=== PATIENT | female | born 1945 | race Caucasian/White ===

== ENCOUNTER 2016-11-05 09:00 | Emergency (ER) | payer MEDICARE, BC ==
--- NOTE | ~2016-11-05 | CT2 ---
[facility] A Service of [facility] / [facility] RADIOLOGY TEXT RESULTS PATIENT: MEHRDAD FISHER LOCATION: [facility] : 45 UNIT #: [id number] AGE: [address]: Wenceslao Miller MD SEX: F ORDER DR: [id number] [facility] [address] [facility]. [place], [place] [address] [id number] E MR#: [id number] Acc #: [id number] NAME: MEHRDAD FISHER. : 1945 SEX: F STUDY DATE/TIME: 11/05/2016 11:36 UNIT: [facility] ROOM: STUDY DESCRIPTION: CT Abd and Pelv W Cont Attending Physician: Wenceslao Miller M.D. Ordering Physician: Wenceslao Miller M.D. Primary Care Physician: Nick Villalobos M.D. MEDICAL IMAGING REPORT This report is preliminary unless electronic signature is present EXAM CT scan of the abdomen and pelvis with contrast HISTORY Right flank and right lower quadrant pain for 2 days radiating down leg TECHNIQUE The patient was given 100 mL of Isovue 370. Axial 5 mm images were obtained through the abdomen and pelvis. This CT exam was performed with one or more of the following radiation dose reduction techniques: automatic exposure control, adjustment of mA and/or kV according to patient size, and iterative reconstruction. COMPARISON 10/13/2013 FINDINGS Lung bases are clear. The liver, spleen, pancreas, adrenal glands and kidneys are normal. gallbladder is absent. The aorta is normal in size and there is no adenopathy. The appendix is normal. There are sigmoid diverticula with mild sigmoid colon wall thickening, unchanged from 2014. There is no inflammation. The uterus has been removed. There are no adnexal masses. The bones show mild degenerative changes. IMPRESSION 1. The appendix is normal and there is no evidence of a urinary stone. No cause for the patient's right-sided symptoms are identified. 2. Prior hysterectomy and cholecystectomy. 3. Otherwise, negative. [facility] A Service of [facility] / [facility] RADIOLOGY TEXT RESULTS PATIENT: MEHRDAD FISHER LOCATION: [facility] #: [id number] : 45 UNIT #: [id number] AGE: [address]: Wenceslao Miller MD SEX: F ORDER DR: Dictated by... Marlo Lyman M.D. THIS IS AN ELECTRONICALLY VERIFIED REPORT Marlo Lyman M.D. at 11/08/2016 2:23 AM FEL/to TD: 11/05/2016 16:10 JOB #: [id number] MEDICAL IMAGING REPORT Page 1 of 1 COPY
[~2016-11-05 09:00] MED LIST: ASPIRIN; CALCIUM + D 6001 TA1 PO; CELEXA; NORVASC PO; OMEPRAZOLE40 MG PO; PREVACID PO; PRILOSEC; SERTRALINE HCL25 MG PO; SYNTHROID; SYNTHROID PO; VIT E
[2016-11-05 10:49] LABS: BASOPHIL# 0.1 X10e3 (0-0.3); BASOPHIL% 1.3 % (0-2.5); EOSINOPHIL# 0.2 X10e3 (0-0.7); HEMATOCRIT 42.3 % (35.0-45.0); HEMOGLOBIN 13.9 gm/dL (12.0-16.0); LYMPHOCYTE# 2.1 X10e3 (1.0-3.5); MEAN CELL VOLUME 87.9 FL (83-96); MEAN CORPUSCULAR HEMOGLOBIN 28.8 PG (28-34); MEAN CORPUSCULAR HGB CONC 32.8 g/dL (30-36); MEAN PLATELET VOLUME 7.6 FL (6.5-11.5); MONOCYTE# 0.8 X10e3 (0-1.0); MONOCYTE% 11.4 % (3.0-12.0); NEUTROPHIL# 3.7 X10e3 (1.5-7.1); NEUTROPHIL% 53.3 % (40-75); PLATELET COUNT 230 X10e3 (140-420); RED BLOOD COUNT 4.81 X10e (3.90-5.30); RED CELL DISTRIBUTION WIDTH 15.3 % (11.0-15.5); WHITE BLOOD COUNT 6.9 X10e3 (4.0-10.5)
[2016-11-05 10:51] LABS: DIFF IND NO
[2016-11-05 10:58] LABS: URINE SOURCE CLEAN CATCH
[2016-11-05 11:03] LABS: URINE APPEARANCE CLEAR; URINE BILIRUBIN NEG (NEG); URINE BLOOD NEG (NEG); URINE COLOR YELLOW; URINE GLUCOSE NEG (NEG); URINE KETONE NEG (NEG); URINE LEUKOCYTE ESTERASE 2+ (NEG); URINE NITRATE NEG (NEG); URINE PH 6.5 (5-8); URINE PROTEIN NEG (NEG)
[2016-11-05 11:05] LABS: CULTURE INDICATED? YES; U HYALINE CASTS AUWI 0-2 /[LPF]; URBCS1 AUWI 0-2 /[HPF] (0-2); URINE BACTERIA AUWI NEG (NEGATIVE); URINE SQUAMOUS EPITHELIAL CELL FEW /[HPF]
[2016-11-05 11:14] LABS: ALBUMIN SERUM 4.3 g/dL (3.5-5.0); BILIRUBIN, DIRECT 0.2 mg/dL (0.0-0.2); BILIRUBIN,INDIRECT 1.2 mg/dL (0.0-0.9); BILIRUBIN,TOTAL 1.4 mg/dL (0.2-2.0); BUN/CREATININE RATIO 16.25; CALCIUM SERUM 9.2 mg/dL (8.4-10.2); CREATININE SERUM 0.8 mg/dL (0.6-1.4); GLOM FILT RATE Estimated 74.2 mL/min (>60); POTASSIUM 3.8 mmol/L (3.5-5.1); PROTEIN TOTAL SERUM 8.1 g/dL (6.0-8.3)
== END 2016-11-05 13:45 | disposition home or self-care (01) ==
LOC: CED 09:00
PROVIDERS: Emergency Medicine
DX: R10.31 Right lower quadrant pain (principal); R10.9 Unspecified abdominal pain; Z90.49 Acquired absence of other specified parts of digestive tract; Z90.710 Acquired absence of both cervix and uterus; Z88.2 Allergy status to sulfonamides; Z88.8 Allergy status to other drugs, medicaments and biological substances
CPT/HCPCS: 36415; 74177; 80048; 80076; 81003; 82150; 83690; 85025; 87086; 96374; 96375; 99284; G0480; J1885; J3010; Q9967

== ENCOUNTER → 2016-12-22 | Outpatient (CLI) | payer MEDICARE, BC ==
--- NOTE | ~2016-12-22 | MY29 ---
[facility] A Service of [facility] RADIOLOGY TEXT RESULTS PATIENT: MEHRDAD FISHER PAT LOCATION: [facility] : 45 UNIT #: [id number] AGE: [address]: Nick Villalobos MD SEX: F ORDER DR: [id number] [place] [id number] [facility]. [place], [place] [address] [id number] O MR#: [id number] Acc #: [id number] NAME: MEHRDAD FISHER : 1945 SEX: F STUDY DATE/TIME: 12/22/2016 10:57 UNIT: [facility] ROOM: STUDY DESCRIPTION: MY ELOISE SCREENING W/ CAD BILAT Attending Physician: Nick Villalobos M.D. Referring Physician: Nick Villalobos M.D. Ordering Physician: Nick Villalobos M.D. Primary Care Physician: Nick Villalobos M.D. MEDICAL IMAGING REPORT This report is preliminary unless electronic signature is present EXAM Bilateral digital screening mammogram with CAD COMPARISON 12/18/2015, November 14, 2014, August 05, 2013, May 07, 2012, May 12, 2011, May 07, 2010, April 12, 2009, April 12, 2008, October 07, 2006, and July 08, 2005. INDICATIONS Breast cancer screening. A 71-year-old asymptomatic female. No personal or family history of breast cancer. FINDINGS There are scattered fibroglandular densities. There are no suspicious findings in either breast. IMPRESSION No mammographic evidence of malignancy. Continued annual screen mammography and clinical breast exam recommended. Patients over the age of 40 are entered into a reminder system with target due date for the next mammogram. A result letter will also be sent to the patient. BIRADS: 1 Negative Dictated by... Phu Ernandez M.D. THIS IS AN ELECTRONICALLY VERIFIED REPORT Phu Ernandez M.D. at 12/24/2016 11:47 AM [facility] A Service of [facility] RADIOLOGY TEXT RESULTS PATIENT: MEHRDAD FISHER [id number] 45 UNIT #: [id number] AGE: [address]: Nick Villalobos MD SEX: F ORDER DR: April TD: 12/22/2016 21:26 JOB #: [id number] MEDICAL IMAGING REPORT Page 1 of 1 COPY
== END | disposition home or self-care (01) ==
LOC: CWCC 10:35
DX: Z12.31 Encounter for screening mammogram for malignant neoplasm of breast (principal)
CPT/HCPCS: G0202